=== PATIENT | female | born 1955 | race Caucasian/White ===

== ENCOUNTER 2019-04-14 08:05 | Emergency (ER) | payer MEDICARE, MEDICAID ==
[2019-04-14 08:25] VITALS: BP 93/70
--- NOTE | 2019-04-14 08:33 | UC ---
UC General HPI - HPI Summary HPI Summary: Patient is a 63yo female presenting with her sister, who is her outsole tacker. Sister states that the patient will not be able to properly answer questions due to cognitive developmental delay, so history is largely obtained from the patient's sister. Patient presenting with nonproductive cough, sore throat, and 3 episodes of diarrhea x2 days. Denies sob and wheezing. Last episode of diarrhea was yesterday. Sister believes it to just be "looser stools." Sister also notes one episode of emesis last night. Patient denies abdominal pain. Denies urinary symptoms. Also notes decreased appetite. Normal fluid intake. Denies fevers at home. Taking mucinex for symptom relief. - History of Current Complaint Chief Complaint: UCGeneralIllness Stated Complaint: DIARRHEA COUGH SORE THROAT Hx Obtained From: Patient, Family/Mechanical Engineering Manager - sister Pain Intensity: 0 - Allergy/Home Medications Allergies/Adverse Reactions: Allergies Allergy/AdvReac Type Severity Reaction Status Date / Time No Known Allergies Allergy Verified 04/14/19 08:25 Home Medications: Home Medications metFORMIN* [Glucophage 500 MG TAB *] 500 mg PO BID 04/14/19 [History Confirmed 04/14/19] PMH/Surg Hx/FS Hx/Imm Hx Endocrine History: Diabetes Cardiovascular History: Hypertension - Surgical History Surgical History: Yes Surgery Procedure, Year, and Place: hysterectomy - Family History Known Family History: Positive: Hypertension - Social History Alcohol Use: None Substance Use Type: None Smoking Status (MU): Never Smoked Tobacco - Immunization History Most Recent Influenza Vaccination: none Review of Systems All Other Systems Reviewed And Are Negative: Yes Constitutional: Positive: Negative ENT: Positive: Sore Throat Respiratory: Positive: Cough. Negative: Shortness Of Breath Cardiovascular: Positive: Negative Gastrointestinal: Positive: Vomiting - x1, Diarrhea - x3. Negative: Abdominal Pain, Nausea Genitourinary: Positive: Negative Musculoskeletal: Positive: Negative Neurological/Mental Status: Positive: Negative Physical Exam - Summary Physical Exam Summary: Vital Signs Reviewed: Yes A+Ox3, no distress, well-appearing Eyes: Conjunctiva Clear, ENT: Hearing grossly normal, TM unable to be visualized due to bilateral cerumen impaction, moist, uvula midline, no exudate, no erythema Neck: Positive: Supple Respiratory: Positive: No respiratory distress, No accessory muscle use + CTA throughout no w/r Cardiovascular: RRR nl s1, s2 no m/r Abd: soft + BS nt/nd no guarding Musculoskeletal Exam: [place] x 4 without difficulty Neurological: Positive: Alert Psychological: Positive: normal response to family Skin: Positive: no rash, no ecchymosis Vital Signs: Initial Vital Signs Temp 98.0 F 04/14/19 08:19 Pulse 91 04/14/19 08:19 Resp 18 04/14/19 08:19 BP 93/70 04/14/19 08:19 Pulse Ox 99 04/14/19 08:19 Lab Results 04/14/19 Range/Units 08:52 Influenza A (Rapid) Negative (Negative) Influenza B (Rapid) Negative (Negative) Course/Dx - Course Course Of Treatment: Negative rapid flu. Discussed viral illness and symptomatic treatment with patient and outsole tacker. Educated on s/s of worsening illness and instructed to return or follow up with pcp if any red flags occur. Patient and outsole tacker voiced understanding and agreed with treatment plan. - Diagnoses Provider Diagnosis: Viral URI with cough, Acute diarrhea Discharge ED - Sign-Out/Discharge Documenting (check all that apply): Patient Departure All imaging exams completed and their final reports reviewed: No Studies - Discharge Plan Condition: Stable Disposition: HOME Patient Education Materials: Viral Syndrome (ED) Referrals: Sapna Mares MD [Primary Care Provider] - If Needed Additional Instructions: Your flu test was negative today. Your symptoms are likely caused by a virus and should resolve without treatment. Get plenty of rest and fluids. You may continue to take mucinex. Eat a bland diet, such as bread, bananas, and rice while symptoms are present. Follow up with your primary care provider if symptoms do not resolve within 7 days. Go to the emergency room if yo develop new or worsening symptoms, including fever, difficulty breathing, excessive vomiting or diarrhea, or you are unable to keep fluids down. - Billing Disposition and Condition Condition: STABLE Disposition: Home
[2019-04-14 09:04] LABS: Influenza A Molecular Negative (Negative); Influenza B Molecular Negative (Negative)
== END 2019-04-14 09:25 | disposition home or self-care (01) ==
LOC: UCCORT 08:05
DX: J06.9 Acute upper respiratory infection, unspecified (principal); E11.9 Type 2 diabetes mellitus without complications; I10 Essential (primary) hypertension; R19.7 Diarrhea, unspecified; R05 Cough; R62.59 Other lack of expected normal physiological development in childhood
CPT/HCPCS: 99211; G0463